=== PATIENT | female | born 1980 | race Caucasian/White ===

== ENCOUNTER → 2019-03-05 | Outpatient (REF) | payer OTHER, SELFPAY ==
[~2019-03-05] MED LIST: ANUS2.5C2 TOP; COLA100C5 PO; IBUP200C25 PO; IBUP600T42 PO; IBUP80TA PO; MILK120011 PO; PRENTAB40 PO; TYLE167L PO
== END ==
LOC: M LAB REF 17:45
PROVIDERS: ATTEND Specialist
DX: Z34.83 Encounter for supervision of other normal pregnancy, third trimester (principal)

== ENCOUNTER 2019-03-26 14:34 | Inpatient (IN) | payer OTHER, SELFPAY ==
[~2019-03-26] VITALS: Ht 165.1 cm; Wt 87.3 kg
[~2019-03-26 14:34] MED LIST changes: -IBUP80TA PO
[2019-03-26 14:50] VITALS: BP 123/86
[2019-03-26 16:18] VITALS: BP 123/74
[2019-03-26 18:13] VITALS: BP 125/76
[2019-03-26 21:25] VITALS: BP 139/87
[2019-03-26 22:02] LABS: HEMATOCRIT 38.1 % (36.0-47.0); HEMOGLOBIN 13.6 g/dl (12.0-15.5); MEAN CORPUSCULAR HEMOGLOBIN 34.3 pg (27.0-33.0); MEAN CORPUSCULAR HGB CONC 35.7 g/dl (32.0-36.5); MEAN CORPUSCULAR VOLUME 96.2 fl (80.0-96.0); PLATELET COUNT, AUTOMATED 189 10^3/uL (150-450); RED BLOOD COUNT 3.96 10^6/uL (4.00-5.40); WHITE BLOOD COUNT 8.9 10^3/uL (4.0-10.0)
[2019-03-26 22:49] VITALS: BP 114/68
--- NOTE | 2019-03-26 23:10 | HPEPDOC ---
Obstetrical History & Physical General Date of Admission Mar 26, 2019 at 21:40 Primary Care Physician: JONA MCALLISTER CNM History of Present Illness Patient is a 38-year-old female who is a at 38.2 weeks gestation with an DORENE of 04/07/2019 based off of her LMP and consistent with her first trimester ultrasound. She initiated care with [facility] but has been seen the majority of her in [place] by a rabble furnace tender in that area. She desires to deliver with [facility] due to the ability to have a TOLAC. Patient's has been complicated by a prior followed by 4 , AMA, and being a grand multiparous. She presented to L&D with complaints of contractions. She wanted to arrive early as she has a [address] to get to the hospital. She reports bloody show and active movement. She denies leaking of fluid. Chief Complaint: Contractions, term Information Provided By: Patient Age: 38 : 8 Term: 6 Pre-term: 0 Abortions: 1 Livin Care Care: Good Care Dating Final EDC: Apr 07, 2019 Final EDC by: LMP LMP: Jul 01, 2018 EGA at Admission: 38.2 Antepartum Course Diagnos(e)s AMA TOLAC Grand multiparous Height (inches): 65 Pre- weight (lbs.): 160 Admission Weight (lbs.): 188 Change in Weight (lbs.): 28 Past Medical History Past Obstetrical History #1: Past Obstetrical History: Primgravida Gestation: 38 Type of Delivery: Spontaneous Vaginal Del. (January 2004) Sex of Infant: Female (weight 7 lbs 4 oz) Complications: No Past Obstetrical History #2: Past Obstetrical History: Multigravida Gestation: 39 Type of Delivery: Ceserean section ( breech presentation March 2005) Sex of : Male (weight: 7 lbs) Past Obstetrical History #3: Past Obstetrical History: Multigravida Gestation: 39 Type of Delivery: Spontaneous Vaginal Del. (March 2007) Sex of : Male (7 lbs 4 oz. ) Complications: No ( succesful) Past Obstetrical History #4: Past Obstetrical History: Multigravida Gestation: 6 Complications: Yes (August 2008 SAB) Past Obstetrical History #5: Past Obstetrical History: Multigravida Gestation: 40 Type of Delivery: Spontaneous Vaginal Del. (August 2009) Sex of : Male (weight: 8 lbs 12 oz) Complications: No () Past Obstetrical History #6: Past Obstetrical History: Multigravida Gestation: 38 Type of Delivery: Spontaneous Vaginal Del. (December 2013) Sex of : Female (weight: 8 lbs 2 oz) Complications: No () Past Obstetrical History #7: Past Obstetrical History: Multigravida Gestation: 39 Type of Delivery: Spontaneous Vaginal Del. 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 Past Medical History Medical History phlebitis 2016 Surgical History: section Family History Significant Family History: Hypertension Social History Marital Status: Family situation: Spouse/partner home Psychosocial History: No pertinent psych hx * Smoker: non-smoker Alcohol: Denies Drugs: denies Abuse Violence Screening Have you been hit/kicked/slapp: No Have you been sexually assault: No Allergies Coded Allergies: codeine (Verified Allergy, Unknown, SWELLING AND HIVES, 03/26/19) Medications Scheduled Pnv No.95/Ferrous Fum/Folic AC ( Formula Tablet) 1 Tab Tab, 1 TAB PO DAILY Physical Examination Physical Examination GENERAL: Alert and oriented times three. BREAST: . ABDOMEN: Gravid and non-tender to touch. FETUS: Is vertex (VTX) by sterile vaginal examination (SVE), fetus is vertex (VTX) by Ángel. HEART RATE: Regular rate and rhythm. LUNGS: Clear to auscultation (CTA). EXTREMITIES: No edema. No clonus. Deep tendon reflexes (DTRs) + 2. Vital Signs/I&O Vital Signs Date Time Temp Pulse Resp B/P (MAP) Pulse Ox O2 Delivery O2 Flow Rate FiO2 03/26/19 18:13 71 18 125/76 (92) 03/26/19 14:50 98.3 Laboratory Data 24H LABS Laboratory Tests 2 03/26/19 21:50: Nucleated Red Blood Cells % (auto) 0.0 03/26/19 22:32: Serology Scanned Report Hepatitis B Testing CBC/BMP Laboratory Tests 03/26/19 21:50 Red Blood Count 3.96 L, Mean Corpuscular Volume 96.2 H, Mean Corpuscular Hemoglobin 34.3 H, Mean Corpuscular Hemoglobin Concent 35.7, Red Cell Distribution Width 12.9 Urine Culture: Contaminated Pertinent Laboratoy Data Blood Type: A+ RBC Antibody Screen: Negative HIV: Negative Hepatitis B: Negative Hepatitis C: Negative Rapid Plasma Reagin: Nonreactive Rubella: Immune Chlamydia/Gonorrhea: Negative Group B Streptococcus: Negative Quad Screen Test: Declined Vaginal Examination Dilation: 4 cm Effacement: 80% Station: -1 Cervical Consistency: Soft Cervical Position: Anterior Position: Vertex (occiput) Assessment Heart Rate (FHR): 130 Variability: Moderate Accelerations: Positive Decelerations: None Tocometer Contractions: Yes Frequency: other (6-10 minutes) Assessment/Plan Assessment IUP at 38.2 weeks gestation Trial of labor after GBS negative latent labor Category I FHR tracing Plan Admit to L&D. Dr. Novoa consulted on plan of care and aware patient is in department and in early labor. 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 Diet: clears. Group B Streptococcus (GBS) negative. Labs and intravenous (IV) per unit protocol. Anesthesia aware of patient being in department. Anesthesia consult per patient's request. Anticipate cervical change and spontaneous vaginal delivery. C-S as appropriate. JONA MCALLISTER CNM Mar 26, 2019 23:09
[2019-03-27] VITALS (10 sets, daily range): BP systolic 94–146; BP diastolic 53–79
--- NOTE | 2019-03-27 07:49 | IPNPDOC ---
Obstetrical Progress Note Date of Service Mar 27, 2019 Subjective Patient reports she is feeling more pressure with contractions. Objective Vital Signs Date Time Temp Pulse Resp B/P (MAP) Pulse Ox O2 Delivery O2 Flow Rate FiO2 03/27/19 07:28 98.4 59 18 124/79 (94) Assessment Heart Rate (FHR): 135 Variability: Moderate Accelerations: Positive Decelerations: None Heart Rate Tracing: Category I Tocometer Contractions: Yes Sterile Vaginal Examination Dilation: 5 cm Effacement (%): 90% Station: -1 Cervical Consistency: Soft Postion/Presentation: Cephalic presentation Assessment and Plan EGA at Admission: 38.3 Status: Reassuring Group B Streptococcus: Negative Anticipate: Vaginal Delivery Additional Comments Dr. Hernandez notified about cervical change. JONA MCALLISTER CNM Mar 27, 2019 07:49
[2019-03-27] MEDS ORDERED: OXYTOCIN 30 UNITS IN 0.9% NaCl 500ML IV BAG (J2590) As Ordered ONE (08:25)
[2019-03-27] MEDS ORDERED: DIBUCAINE 1% OINTMENT 30GM TOP PRN (10:00)
[2019-03-27] MEDS ORDERED: ACETAMINOPHEN TAB 650MG DOSE (2X325MG) PO PRN (10:00)
[2019-03-27] MEDS ORDERED: IBUPROFEN 600 MG TAB PO PRN (10:00)
[2019-03-27] MEDS ORDERED: ONDANSETRON 4MG/2ML VIAL (J2405) IV PRN (10:00)
[2019-03-27] MEDS ORDERED: DOCUSATE SODIUM 100 MG CAP PO PRN (10:00)
[2019-03-27] MEDS ORDERED: RHOGAM 300 MCG (1500 IU) INJ (J2790) IM SCH (10:00)
[2019-03-27] MEDS ORDERED: OXYTOCIN DRIP 30 UNITS in IV 1 EA IV SCH (10:00)
[2019-03-27] MEDS ORDERED: PROMETHAZINE 25 MG TAB PO PRN (10:00)
[2019-03-27] MEDS ORDERED: MEASLES,MUMPS,RUBELLA VACCINE INJ (MMR-II) (90707) SC SCH (10:00)
[2019-03-27] MEDS: PRENATAL VITAMINS CHEWABLE TABLET PO SCH (12:23)
[2019-03-27] MEDS: IBUPROFEN 800 MG TAB PO PRN (20:07)
[2019-03-28] MEDS: ACETAMINOPHEN 500 MG TAB PO PRN ×2 (01:04→08:26)
[2019-03-28] MEDS: IBUPROFEN 800 MG TAB PO PRN (05:30)
[2019-03-28 05:59] VITALS: BP 105/68
[2019-03-28] MEDS ORDERED: IBUP80TA PO (07:10)
[2019-03-28] MEDS: PRENATAL VITAMINS CHEWABLE TABLET PO SCH (08:26)
== END 2019-03-28 11:20 | disposition home or self-care (01) | DRG 560 ==
LOC: M LDO 14:34 → M LDI 21:40 → M OBS 03-27 10:38
PROVIDERS: ADMIT Advanced Practice Midwife; ATTEND Obstetrics & Gynecology
PROC: 10E0XZZ Delivery of Products of Conception, External Approach (ICD-10-PCS; principal; 2019-03-27)
DX: O34.211 Maternal care for low transverse scar from previous cesarean delivery (principal); O69.81X0 Labor and delivery complicated by cord around neck, without compression, not applicable or unspecified; Z3A.38 38 weeks gestation of pregnancy; Z37.0 Single live birth